=== PATIENT | male | born 1965 | race Caucasian/White ===

== ENCOUNTER 2020-01-12 11:56 | Emergency (ER) | payer BC ==
--- OUTSIDE RECORDS SUMMARY | 2020-01-12 11:59 | XMS REPORT | Clinical Summary ---
:1965 Author Organization [facility] Address [address] [place] [address] Care Team Providers Name Role Phone Gage Daigle Primary Care Provider Allergies No Known Allergies Medications Medication Sig Dispensed Refills Start Date End Date Status levothyroxine sodium Take 175 mcg by 0 Active (SYNTHROID ORAL) mouth daily . ibuprofen (ADVIL,MOTRIN) Take 400 mg by 0 Active 400 MG tablet mouth every 6 (six) hours as needed for Pain. Active Problems Not on file Social History Tobacco Use Types Packs/Day Years Used Date Never Smoker Smokeless Tobacco: Never Used Alcohol Use Drinks/Week oz/Week Comments Yes 2 Cans of beer 1.2 Sex Assigned at Date Recorded Not on file Job Start Date Occupation Industry Not on file Not on file Not on file Travel History Travel Start Travel End No recent travel history available. Last Filed Vital Signs Not on file Plan of Treatment Not on file Results Not on fileafter 01/11/2019 Insurance Payer Benefit Plan / Subscriber ID Type Phone Address Group BLUE CROSS/BLUE BCBS ADV HMO xxxxxxxxxxxx [phone] [address] [place] [address]
--- OUTSIDE RECORDS SUMMARY | 2020-01-12 11:59 | XMS REPORT | Continuity of Care Document ---
:1965 Author Organization [facility] t Address [address] [place] [address] Care Team Providers Name Role Phone Garrison Daigle Primary Care Physician MAXI MCDONALD Attending Clinician Unavailable MAXI MCDONALD Admitting Clinician Unavailable Payers Payer Name Policy Type Policy Number Effective Date Expiration Date S ource Problems This patient has no known problems. Allergies, Adverse Reactions, Alerts Allergy Allergy Status Severity Reaction(s) Onset Inactive Treating Comm ents Source Name Type Date Date Clinician No Known DA Active U 2018-05 [facility] [place] [facility] No Known DA Active U 2018-05 [facility] 06[facility]06 [place] [facility] No Known DA Active U [facility] 09-28 [place] [facility] No Known DA Active U [facility] [place] [facility] Social History Social Habit Start Date Stop Date Quantity Comments Source Sex Assigned At [facility] Smoking Status Start Date Stop Date Source Never smoker [facility] Medications Ordered Filled Start Stop Current Ordering Indication Dosage Frequency Signature Comments Components Source Medication Medication Date Date Medication? Clinician (SIG) Name Name levothyroxi Yes 175ug QD Take [address] ne sodium 3-14 mcg [facility] - (SYNTHROID 13:21: mouth Medica l ORAL) 04 daily . Center ibuprofen 2017-05 Yes 400mg Take [address] [facility] (ADVIL,MOTR 0-08 [facility] [place]) 400 MG 07:45: mouth Medica l tablet 42 every 6 Center (six) hours as needed for Pain. Procedures This patient has no known procedures. Results Test Description Test Time Test Comments Results Result [facility] e Comments - XR ARTHROGRAM 2019-05-02 Patient Name: HIP W/O AN RT+ 10:49:00 GARRISON SORENSEN Unit No: [id number] EXAMS: CPT CODE: [id number] XR ARTHROGRAM HIP W/O AN RT+ 41354 Right hip arthrogram COMPARISON: No prior exams available. FINDINGS: After informed consent was obtained a 22-gauge needle is inserted into the right hip joint under fluoroscopic control using sterile technique. A total volume of 10 mL consisting of a combination of equal parts Isovue-300 and gadolinium is instilled into the joint space. The patient tolerated the procedure well. Fluoroscopic Time: 13 seconds IMPRESSION: Technically successful right hip arthrogram at 1049 Reported and signed by: Chaparro Avila M.D. CC: Cosmo Hawkins MD Technologist: Sunita Bravo RT.(R) Transcribed D/ (1041) t.SDR.SLJ [facility] NAME: GARRISON SORENSEN [address] [facility] PHYS: [email or web address] - Cosmo Hawkins : 1965 AGE: 53 SEX: M [place], [place] [address] LOC: Y.RAD PHONE #: [phone] EXAM DATE: 04/29/2019 STATUS: DEP CLI FAX #: [phone] RAD #: D/C DT PAGE 1 Signed Report Patient Name: GARRISON SORENSEN Unit No: [id number] EXAMS: CPT CODE: [id number] XR ARTHROGRAM HIP W/O AN RT+ 03557 <Continued> Orig Print D/T: S: 05/02/2019 (1052) [facility] NAME: GARRISON SORENSEN [address] [facility] PHYS: GOSTEPHANIEUChristophe - Cosmo Hawkins : 1965 AGE: 53 SEX: M [place], [place] [address] LOC: Y.RAD PHONE #: [phone] EXAM DATE: 04/29/2019 STATUS: DEP CLI FAX #: [phone] RAD #: D/C DT PAGE 2 Signed Report - MRI LW JNT 2019-04-30 Patient Name: W/CONTRAST RT 09:57:00 GARRISON SORENSEN Unit No: [id number] EXAMS: CPT CODE: [id number] MRI LW JNT W/[place] [address] TECHNIQUE: Multiplanar multisequence MR images of the right hip were obtained following intra-articular administration of gadolinium contrast (see separately dictated procedure note for details). Images were then viewed on the PACS workstation in the axial, coronal and sagittal planes. COMPARISON: None available. FINDINGS: Bone: No acute fracture. Prominent acetabular and femoral head osteophytes are visualized. No suspicious osseous lesion. Cartilage: Overall moderate hip joint degenerative changes are demonstrated, reaching high-grade of the anterior superior acetabulum over a transverse dimension of 8 mm. Labrum: Complex tear of the superior to anterior labrum is visualized. Femoroacetabular Impingement Assessment: Alpha Angle (normal= <55 degrees) : 58 degrees Lateral Center Edge Angle (normal=25-39 degrees): 30 degrees Extraarticular Hip Impingement: No osseous proliferation of the anterior inferior iliac spine. Iliopsoas tendon is unremarkable. No evidence of ischiofemoral impingement. Tendons: Hamstring tendinosis is present without significant tear visualized. Gluteal tendons are intact. Bursitis: No significant trochanteric or iliopsoas bursitis. Muscles: Signal intensity and volume are preserved. Other: Moderate synovitis of the right hip joint is noted. Partially visualized intrapelvic structures are unremarkable. IMPRESSION: Overall moderate right hip joint degenerative change with complex tear of the superior to anterior labrum. at 0957 Reported and signed by: Chaparro Avila M.D. CC: Cosmo Hawkins MD Technologist: VJ LINK RT(R) Transcribed D/ (0957) MelSLJ [facility] NAME: GARRISON SORENSEN [address] [facility] PHYS: BELKIS - Cosmo Hawkins : 1965 AGE: 53 SEX: M [place] [address] LOC: Y.RAD PHONE #: [phone] EXAM DATE: 04/29/2019 STATUS: DEP CLI FAX #: [phone] RAD #: D/C DT PAGE 1 Signed Report Patient Name: GARRISON SORENSEN Unit No: [id number] EXAMS: CPT CODE: [id number] MRI LW JNT W/[place] [address] <Continued> Orig Print D/T: S: 04/30/2019 (1000) [facility] NAME: GARRISON SORENSEN [address] [facility] PHYS: BELKIS - Cosmo Hawkins : 1965 AGE: 53 SEX: M [place] [address] LOC: Y.RAD PHONE #: [phone] EXAM DATE: 04/29/2019 STATUS: DEP CLI FAX #: [phone] RAD #: D/C DT PAGE 2 Signed Report - MRI LW JNT 2018-09-22 Patient Name: W/CONTRAST LT 09:02:00 GARRISON SORENSEN Unit No: [id number] EXAMS: CPT CODE: [id number] MRI LW JNT W/[place] [address] MRI ARTHROGRAM LEFT HIP DIAGNOSIS: 1. There is marked attenuation and irregularity of the anterior and superior labrum compatible with labral degeneration and tearing. 2. The alpha angle measures 48 degrees. The lateral center edge angle measures 32 degrees. 3. Visualized bony structures are within normal limits in signal. INDICATION: Left hip pain COMPARISON: None PULSE SEQUENCES: Multiplanar, multisequence MRI is obtained of the left hip post arthrography. There is satisfactory contrast distention of the left hip joint. Acetabular labral degeneration and tearing as described. The ligamentum teres and transverse ligaments are intact. Mild left hip joint chondral. No aggressive osseous lesion or acute fracture. The iliopsoas, rectus femoris, gluteal, and hamstring tendons are normal. No muscle belly atrophy or edema. No iliopsoas or trochanteric bursal fluid to suggest bursitis. The visualized pelvic structures are normal. There are no regional soft tissue abnormalities or aggressive osseous lesions. at 0902 Reported and signed by: No Todd MD CC: Ezequiel Tariq MD Technologist: Marci Perla, RT(R) Transcribed D/ (901) [facility] NAME: GARRISON SORENSEN [address] [facility] PHYS: Ezequiel Conn MD : 1965 AGE: 53 SEX: M [place] [address] LOC: Y.RAD PHONE #: [phone] EXAM DATE: 09/21/2018 STATUS: DEP CLI FAX #: [phone] RAD #: D/C DT PAGE 1 Signed Report Patient Name: GARRISON SORENSEN Unit No: [id number] EXAMS: CPT CODE: [id number] MRI LW JNT W/[place] [address] <Continued> Orig Print D/T: S: 09/22/2018 (0905) [facility] NAME: GARRISON SORENSEN [address] [facility] PHYS: Ezequiel Conn MD : 1965 AGE: 53 SEX: M [place], [place] [address] LOC: Y.RAD PHONE #: [phone] EXAM DATE: 09/21/2018 STATUS: DEP CLI FAX #: [phone] RAD #: D/C DT PAGE 2 Signed Report - XR ARTHROGRAM 2018-09-22 Patient Name: HIP W/O AN LT+ 07:56:00 GARRISON SORENSEN Unit No: [id number] EXAMS: CPT CODE: [id number] XR ARTHROGRAM HIP W/O AN LT+ 16781 Left hip arthrogram/ steroid injection COMPARISON: No prior exams available. FINDINGS: After informed consent was obtained a 22-gauge needle is inserted into the left hip joint under fluoroscopic control using sterile technique. A total volume of 8 mL consisting of a combination of equal parts Isovue-300 and gadolinium is instilled into the joint space followed by 2 mL of Kenalog 40 mg/ml and 2 mL of lidocaine. The patient tolerated the procedure well. Fluoroscopic Time:9 seconds IMPRESSION: Technically successful left hip arthrogram and steroid injection. at 0756 Reported and signed by: Chaparro Avila M.D. CC: Ezequiel Tariq MD Technologist: RT Glenna.(R) Transcribed D/ (0756) Margarita [facility] NAME: GARRISON SORENSEN [address] [facility] PHYS: Ezequiel Conn MD : 1965 AGE: 53 SEX: M [place] [address] LOC: Y.RAD PHONE #: [phone] EXAM DATE: 09/21/2018 STATUS: DEP CLI FAX #: [phone] RAD #: D/C DT PAGE 1 Signed Report Patient Name: GARRISON SORENSEN Unit No: [id number] EXAMS: CPT CODE: [id number] XR ARTHROGRAM HIP W/O AN LT+ 28628 <Continued> Orig Print D/T: S: 09/22/2018 (0759) [facility] NAME: GARRISON SORENSEN [address] [facility] PHYS: Ezequiel Conn MD : 1965 AGE: 53 SEX: M [place] [address] LOC: Y.RAD PHONE #: [phone] EXAM DATE: 09/21/2018 STATUS: AGAPITO CLI FAX #: [phone] RAD #: D/C DT PAGE 2 Signed Report TISSUE EXAM 2018-08-13 Surgical Pathology Report 13:42:00 Case: [id number] Authorizing Provider: Michell Mcdonald MD Collected: 08/12/2018 1101 Ordering Location: [facility] Received: 08/12/2018 1507 SERVICES Pathologist: Jacquelyn Craft MD Specimens: A) - Duodenum, Bx R/O Celiac B) - Biopsy, Gastric, Random, R/O H Pylori C) - Biopsy, Gastroesophageal Junction, R/O Barretts D) - Biopsy, Mid-esophagus, R/O EOE E) - Proximal Esophagus, R/O EOE A. SMALL BOWEL, DUODENUM, BIOPSIES: - PEPTIC DUODENITIS B. STOMACH, RANDOM BIOPSIES: - CHEMICAL/REACTIVE GASTROPATHY - CHRONIC INACTIVE GASTRITISC. GE JUNCTION, BIOPSIES: - REFLUX ESOPHAGITIS - REACTIVE CARDITIS D. ESOPHAGUS, MID, BIOPSY: - REFLUX ESOPHAGITIS E. ESOPHAGUS, PROXIMAL, BIOPSY: - REFLUX ESOPHAGITIS BONG/sana Signing Pathologist Direct Phone Line: [phone] y signed by Jacquelyn Craft MD on 08/13/2018 at 1:42 [id number]; [id number], gastroesophageal reflux disease, rule out EOE, rule out H. Pylori, rule out celiacA. Duodenum. B. Random gastric. C. Gastroesophageal junction. D. Mid esophagus. E. Proximal esophagus The specimen is received in five containers of formalin all labeled with the patient's information.Specimen A: Labeled "duodenum biopsy" consists of multiple fragments of woodward tissue ranging from 0.1 to 0.3 cm, submitted in A1.Specimen B: Labeled "gastric biopsy random" consists of multiple fragments of woodward tissue ranging from 0.1 to 0.5 cm submitted entirely in B1.Specimen C: Labeled "gastroesophageal junction biopsy" consists of four fragments of woodward tissue ranging from 0.1 to 0.3 cm, submitted in C1.Specimen D: Labeled "mid esophagus biopsy" consists of two fragments of off-white tissue measuring 0.1 and 0.2 cm, submitted in D1.Specimen E: Labeled "proximal esophagus biopsy" consists of three fragments of off-white soft tissue ranging from 0.1 to 0.2 cm, submitted entirely in E1. CG/ew A. Duodenal biopsies have duodenal mucosa with Keyla gland hyperplasia, increased chronic inflammatory cells in the lamina propria and foveolar Metaplasia. Villous to crypt ratio is normal with no increased intraepithelial lymphocytes. No parasites, dysplasia or malignancy is identified.B. Gastric biopsies have antral and oxyntic mucosa and chronic inflammatory cells in the lamina propria. Antral mucosa has foveolar and fibromuscular hyperplasia. No Helicobacter pylori are seen on H&E or Warthin-starry stain. No intestinal metaplasia, dysplasia or malignancy is identified. C. Biopsies of GE junction have squamous epithelium and gastric cardiac mucosa. Squamous epithelium has marked basal cell hyperplasia and increased intraepithelial lymphocytes. No fungi, viral cytopathic effect, intestinal metaplasia, dysplasia or malignancy is identified. D-E: Esophageal biopsies have basal cell hyperplasia and increased intraepithelial lymphocytes. No increased intraepithelial eosinophils, fungi, viral cytopathic effect, intestinal metaplasia or malignancy identified. The interpretation of this case included the use of immunohistochemistry or special stains. Immunohistochemistry technical testing was performed at [facility], Pathology Laboratory where it was developed and its performance characteristics were determined. It has not been cleared or approved by the U.S. Food and Drug Administration. The FDA has determined that such clearance or approval is not necessary. The test is used for clinical purposes. It should not be regarded as investigational or for research. This laboratory is certified under the Clinical Laboratory Improvement Amendments of 1988 (CLIA-88) as qualified to perform high complexity clinical laboratory testing.
--- NOTE | 2020-01-12 12:57 | RAD REPORT ---
EXAM DESCRIPTION: CT - Head C Spine Cap W [place] - 01/12/2020 12:35 pm CLINICAL HISTORY: fall from ladder 12 ft COMPARISON: No comparisons TECHNIQUE: Axial [address] head images were obtained. Axial [address] cervical spine images were obtaine d with sagittal and coronal reconstruction images reviewed. During dynamic enhancement of 100mL non-i onic contrast, axial 5 mm images of the chest, abdomen and pelvis were obtained. Biphasic technique p erformed of the abdomen and pelvis. All CT scans are performed using dose optimization technique as appropriate and may include automated exposure control or mA/KV adjustment according to patient size. FINDINGS: No intracranial hemorrhage, mass or edema. No midline shift or abnormal fluid collection. Mastoid air cells and paranasal sinuses are clear. No skull fracture. CT cervical spine imaging shows normal height. Normal alignment of the vertebrae. No disc space narro wing. No paraspinal mass or hematoma seen. Central canal detail is inherently limited. Concerns for t raumatic disc herniation or traumatic cord injury can be further addressed with MR imaging. CT chest shows no pneumothorax, pulmonary contusion or pleural fluid collection. No mediastinal hemat alejandrina and the aorta and pulmonary arteries are unremarkable. No chest will mass or abnormal axillary fi nding. No displaced rib fracture or other significant bony finding. No right shoulder abnormality se en. Left shoulder left clavicle are only partially imaged. CT abdomen and pelvis show no injury to solid abdominal viscera. Gallbladder and biliary tree are unr emarkable. No bowel injury or significant finding. No free air, free fluid or abnormal stranding. No urinary bladder abnormality. No pelvic fracture or proximal femur fracture. Schmorl's nodes are seen in several lower thoracic alfredito tebrae. There is concavity to the superior endplate T11. This is believed to be chronic. Posterior wa ll height is preserved. Patient has advanced degenerative disc disease at L2-3 with posterior endplat e spurring and prominent disc bulge. L4-5 and L5-S1 degenerative disc disease present. Central canal detail is inherently limited. No significant vascular finding. IMPRESSION: No hemorrhage, edema or acute CT Head finding. No significant CT Cervical Spine finding. No significant CT Chest finding. No significant CT Abdomen and Pelvis finding.
--- NOTE | 2020-01-12 13:15 | RAD REPORT ---
EXAM DESCRIPTION: RAD - Shoulder Right 2 View - 01/12/2020 1:02 pm CLINICAL HISTORY: Right shoulder pain FINDINGS: No fracture or dislocation is seen.
--- NOTE | 2020-01-12 13:23 | RAD REPORT ---
EXAM DESCRIPTION: RAD - Tib Fib Right - 01/12/2020 1:04 pm CLINICAL HISTORY: Right leg pain FINDINGS: No fracture is seen
--- NOTE | 2020-01-12 13:25 | RAD REPORT ---
EXAM DESCRIPTION: RAD - Knee Right 3 View - 01/12/2020 1:04 pm CLINICAL HISTORY: Right knee pain status post injury FINDINGS: No fracture or dislocation is seen.
--- NOTE | 2020-01-12 13:29 | EDPHYS ---
Physician Documentation [facility] Name: Gage Rai Age: 54 yrs Sex: Male : 1965 Arrival Date: 01/12/2020 Time: 11:56 Bed 18 Private MD: ED Physician Ziyad Pride HPI: 01/11 12:14 This 54 yrs old Male presents to ER via Unassigned with complaints of Fall rn Injury, possible LOC, Shoulder Injury. 12:14 Details of fall: The patient fell from a height, from a ladder, approximately 12 feet. rn Onset: The symptoms/episode began/occurred just prior to arrival. Associated injuries: The patient sustained right shoulder, right knee, right truong. Severity of symptoms: At their worst the symptoms were moderate, in the emergency department the symptoms have improved. The patient has not experienced similar symptoms in the past. Reports fell on ladder, approx 12 ft high, no direct head injury, reports pain to right shoulder, right knee, right truong, states ambulatory to his office, picked up phone, then thinks might have passed out because doesn't recall making phone call. No blood thinners. . Historical: - Allergies: 14:21 No Known Allergies; jr10 - Immunization history:: Adult Immunizations up to date. - Social history:: Smoking status: unknown. - Family history:: not pertinent. - Hospitalizations: : No recent hospitalization is reported. ROS: 12:14 Constitutional: Negative for fever, chills, and weight loss, Neck: Negative for injury, rn pain, and swelling, Cardiovascular: Negative for chest pain, palpitations, and edema, Respiratory: Negative for shortness of breath, cough, wheezing, and pleuritic chest pain, Abdomen/GI: Negative for abdominal pain, nausea, vomiting, diarrhea, and constipation, Back: Negative for injury and pain, MS/Extremity: + right knee and pre-tibial injury and pain, + right shoulder pain Skin: + abrasions to left knee and left hand Neuro: Negative for headache, weakness, numbness, tingling, and seizure. Exam: 12:14 Constitutional: This is a well developed, well nourished patient who is awake, alert, rn and in no acute distress. Ambulatory to room without difficulty. Head/Face: Normocephalic, atraumatic. Eyes: Pupils equal round and reactive to light, extra-ocular motions intact. Lids and lashes normal. Conjunctiva and sclera are non-icteric and not injected. Cornea within normal limits. Periorbital areas with no swelling, redness, or edema. Neck: No vertebral point tenderness. Chest/axilla: Normal chest wall appearance and motion. Nontender with no deformity. Cardiovascular: Bradycardic, regular. No pulse deficits. Respiratory: Speaking full sentences. No increased work of breathing, no retractions or nasal flaring. Abdomen/GI: soft, non-tender Back: No spinal tenderness. Full range of motion. Skin: 2.5 cm superficial laceration distal to right elbow, no active bleeding. MS/ Extremity: Pulses equal, no cyanosis. Neurovascular intact. Mild pain with ROM right shoulder, no gross deformity, holding phone in right hand during interview. + left dorsal hand abrasions and skin tear. Neuro: Awake and alert, GCS 15, oriented to person, place, time, and situation. Cranial nerves II-XII grossly intact. Motor strength 5/5 in all extremities. Sensory grossly intact. Cerebellar exam normal. Normal gait. Vital Signs: 12:10 BP 142 / 94; Pulse 55; Resp 16; Temp 98.4(O); Pulse Ox 97% on R/A; Weight 88.45 kg; dh3 Height 6 ft. 2 in. (187.96 cm); Pain 6/10; 14:22 BP 128 / 83; Pulse 65; Resp 18; Pulse Ox 99% on R/A; jr10 12:10 Body Mass Index 25.04 (88.45 kg, 187.96 cm) 3 Laceration: 14:37 Wound Repair of 2.5cm ( 1.0in ) subcutaneous laceration to distal to right elbow. rn Distal neuro/vascular/tendon intact. Anesthesia: Wound infiltrated with 2 mls of 1% lidocaine. Wound prep: Extensive cleansing with betadine by nurse, Wound explored extensively. Skin closed with 3 4-0 Prolene using interrupted sutures and sterile technique. Dressed with steri-strips. Patient tolerated well. MDM: 12:00 Patient medically screened. rn 13:26 Differential diagnosis: closed head injury, contusion, fracture, sprain, strain. Data rn reviewed: vital signs, nurses notes, radiologic studies, CT scan, plain films, and as a result, I will discharge patient. Counseling: I had a detailed discussion with the patient and/or guardian regarding: the historical points, exam findings, and any diagnostic results supporting the discharge/admit diagnosis, radiology results, the need for outpatient follow up, to return to the emergency department if symptoms worsen or persist or if there are any questions or concerns that arise at home. Special discussion: I discussed with the patient/guardian in detail that at this point there is no indication for admission to the hospital. It is understood, however, that if the symptoms persist or worsen the patient needs to return immediately for re-evaluation. ED course: No acute findings on CT or xrays. Will dc home and recommend MRI knee/shoulder if do not improve with conservative therapy. . 01/11 13:00 Order name: CREATININE WHOLE BLOOD; Complete Time: 13: EDMS 01/11 12:09 Order name: CT Traumagram (Head C Spine CAP W Con); Complete Time: 13:26 rn 01/11 12:09 Order name: XRAY Shoulder RIGHT 2 view; Complete Time: 13: rn 01/11 12:09 Order name: XRAY Knee RIGHT 3 view; Complete Time: 13:26 rn 01/11 12:09 Order name: XRAY Tib Fib RIGHT; Complete Time: 13: rn Administered Medications: No medications were administered Disposition: 01/12/20 13:28 Discharged to Home. Impression: Unspecified sprain of right shoulder joint, Contusion of right knee, Fall on and from ladder. - Condition is Stable. - Discharge Instructions: Contusion, Knee Pain, Shoulder Sprain. - Medication Reconciliation Form, Thank You Letter, Antibiotic Education, Prescription Opioid Use form. - Follow up: Private Physician; When: As needed; Reason: Recheck today's complaints, Re-evaluation by your physician. - Problem is new. - Symptoms have improved. Signatures: Dispatcher [employer] [facility] Ziyad Pride MD MD rn Rivera, Jessica, RN RN jr10 Corrections: (The following items were deleted from the chart) 14:37 12:14 Constitutional: This is a well developed, well nourished patient who is awake, rn alert, and in no acute distress. Ambulatory to room without difficulty. Head/Face: Normocephalic, atraumatic. Eyes: Pupils equal round and reactive to light, extra-ocular motions intact. Lids and lashes normal. Conjunctiva and sclera are non-icteric and not injected. Cornea within normal limits. Periorbital areas with no swelling, redness, or edema. Neck: No vertebral point tenderness. Chest/axilla: Normal chest wall appearance and motion. Nontender with no deformity. Cardiovascular: Bradycardic, regular. No pulse deficits. Respiratory: Speaking full sentences. No increased work of breathing, no retractions or nasal flaring. Abdomen/GI: soft, non-tender Back: No spinal tenderness. Full range of motion. MS/ Extremity: Pulses equal, no cyanosis. Neurovascular intact. Mild pain with ROM right shoulder, no gross deformity, holding phone in right hand during interview. + left dorsal hand abrasions and skin tear. Neuro: Awake and alert, GCS 15, oriented to person, place, time, and situation. Cranial nerves II-XII grossly intact. Motor strength 5/5 in all extremities. Sensory grossly intact. Cerebellar exam normal. Normal gait. rn 14:54 13:28 01/12/2020 13:28 Discharged to Home. Impression: Unspecified sprain of right jr10 shoulder joint; Contusion of right knee; Fall on and from ladder. Condition is Stable. Forms are Medication Reconciliation Form, Thank You Letter, Antibiotic Education, Prescription Opioid Use. Follow up: Private Physician; When: As needed; Reason: Recheck today's complaints, Re-evaluation by your physician. Problem is new. Symptoms have improved. rn
--- NOTE | 2020-01-12 13:29 | ER ---
Nurse's Notes [facility] Name: Gage Rai Age: 54 yrs Sex: Male : 1965 Arrival Date: 01/12/2020 Time: 11:56 Bed 18 Private MD: Diagnosis: Unspecified sprain of right shoulder joint;Contusion of right knee;Fall on and from ladder Presentation: 01/11 12:19 Chief complaint: Patient states: pt states "I was on the top of the ladder and the jr10 extension part slid down and I fell with the ladder and fell on top of the ladder"; pt does report LOC after incident, c/o right arm, right knee pain. Care prior to arrival: None. Mechanism of Injury: Fall 12:19 Acuity: MARISA 3 jr10 12:19 Method Of Arrival: Ambulatory jr10 Historical: - Allergies: 14:21 No Known Allergies; jr10 - Immunization history:: Adult Immunizations up to date. - Social history:: Smoking status: unknown. - Family history:: not pertinent. - Hospitalizations: : No recent hospitalization is reported. Screenin:23 Abuse screen: Denies threats or abuse. Denies injuries from another. Nutritional jr10 screening: No deficits noted. Tuberculosis screening: No symptoms or risk factors identified. Fall Risk IV access (20 points). Assessment: 12:21 General: Appears in no apparent distress. Behavior is appropriate for age. Pain: jr10 Complains of pain in anterior aspect of right shoulder, posterior aspect of right shoulder and right knee Pain began 1 hour ago. Neuro: No deficits noted. Level of Consciousness is awake, alert, obeys commands, Oriented to person, place, time, situation, Appropriate for age. Cardiovascular: No deficits noted. Denies chest pain. Respiratory: Airway is patent Respiratory effort is even, unlabored, Respiratory pattern is regular, symmetrical, Denies shortness of breath. GI: No deficits noted. No signs and/or symptoms were reported involving the gastrointestinal system. : No deficits noted. No signs and/or symptoms were reported regarding the genitourinary system. EENT: No deficits noted. No signs and/or symptoms were reported regarding the EENT system. Derm: No deficits noted. No signs and/or symptoms reported regarding the dermatologic system. Musculoskeletal: no deformity noted to right shoulder Reports pain in anterior aspect of right shoulder, posterior aspect of right shoulder and right knee. 13:11 Reassessment: pt returned from CT, appears in NAD. jr10 14:23 Injury Description: Laceration sustained to palmar aspect of right forearm is clean, jr10 0.5 to 2.5 cm long, mild bleeding noted a small amount of bleeding noted at this time. Dr Pride at bedside for lac repair at present. 14:53 Reassessment: steri strips placed to right elbow post lac repair. jr10 Vital Signs: 12:10 BP 142 / 94; Pulse 55; Resp 16; Temp 98.4(O); Pulse Ox 97% on R/A; Weight 88.45 kg; dh3 Height 6 ft. 2 in. (187.96 cm); Pain 6/10; 14:22 BP 128 / 83; Pulse 65; Resp 18; Pulse Ox 99% on R/A; jr10 12:10 Body Mass Index 25.04 (88.45 kg, 187.96 cm) 3 ED Course: 11:56 Patient arrived in ED. as 12:00 Ziyad Pride MD is Attending Physician. rn 12:21 Triage completed. jr10 12:23 Patient has correct armband on for positive identification. Bed in low position. Call jr10 light in reach. Side rails up X2. Pulse ox on. NIBP on. 12:23 No provider procedures requiring assistance completed. Inserted saline lock: 20 gauge jr10 in left antecubital area, using aseptic technique. IV is patent, is intact, with good blood return, Flushed. 12:35 CT Traumagram (Head C Spine CAP W Con) In Process Unspecified. EDMS 12:57 Sanaz Strange, JAMAAL is Primary Nurse. jr10 12:57 XRAY Shoulder RIGHT 2 view In Process Unspecified. EDMS 12:57 XRAY Knee RIGHT 3 view In Process Unspecified. EDMS 12:57 XRAY Tib Fib RIGHT In Process Unspecified. EDMS 14:52 IV discontinued, intact, bleeding controlled, No redness/swelling at site. Pressure jr10 dressing applied. Administered Medications: No medications were administered Outcome: 13:28 Discharge ordered by MD. rn 14:53 Discharged to home ambulatory. jr10 14:53 Condition: stable 14:53 Discharge instructions given to patient, Instructed on discharge instructions, follow up and referral plans. Demonstrated understanding of instructions, follow-up care. 14:54 Patient left the ED. jr10 Signatures: Dispatcher [employer] EDViji Bocanegra Roman, MD MD rn Herrera, De[facility] Sanaz Strange RN RN jr10 Corrections: (The following items were deleted from the chart) 14:27 14:23 Injury Description: Laceration sustained to palmar aspect of right forearm is jr10 clean, 0.5 to 2.5 cm long, mild bleeding noted a small amount of bleeding noted at this time. jr10
[2020-01-12] MEDS ORDERED: LIDOCAINE 1% MPF 30 ML VIAL ONE (14:17)
[2020-01-17 10:37] VITALS: TEMP 98.4
[2020-01-17 10:38] VITALS: BP 128/83; O2SAT 99
== END 2020-01-12 14:54 | disposition home or self-care (01) ==
LOC: ER 11:56
PROC: 0JQG0ZZ Repair Right Lower Arm Subcutaneous Tissue and Fascia, Open Approach (ICD-10-PCS; principal; 2020-01-12)
DX: S43.401A Unspecified sprain of right shoulder joint, initial encounter (principal); S41.011A Laceration without foreign body of right shoulder, initial encounter; S80.01XA Contusion of right knee, initial encounter; W11.XXXA Fall on and from ladder, initial encounter; Y93.9 Activity, unspecified; Y92.9 Unspecified place or not applicable
CPT/HCPCS: 82565; 70450; 72125; 71260; 74177; 73030; 73562; 73590; 99283; 12001; Q9967